=== PATIENT | male | born 1985 | race Caucasian/White ===

== ENCOUNTER 2016-08-30 02:19 | Emergency (ER) | payer BC ==
[~2016-08-30] VITALS: Ht 182.9 cm; Wt 101.3 kg
[~2016-08-30 02:19] MED LIST: AMBIEN10 MG PO; AUGMENTIN875 MG PO; BROMFED DM COU118 ML PO; CLINDAMYCIN HC300 MG PO; DOXYCYCLINE HY100 MG PO; FIORICET 50-301 EACH PO; INDOCIN25 MG PO; MUCINEX D ER T1 EACH PO; NAPROSYN500 MG PO; NASONEX17 GM BOTH NARES; NO HOME MEDS; NO MEDS; NOHOMEMEDS; NORCO 7.5/321 TABLET PO; PERCOCET 5-3251 EACH PO; SUMATRIPTAN SUC50 MG PO; VALIUM2 MG PO; VIBRAMYCIN100 MG PO; VICODIN 5-5001 EACH PO; oxyCODONE PO
[2016-08-30 02:56] LABS: HEMATOCRIT 44.2 % (38.0-50.0); MCH 33.1 PG (29.0-34.0); MCHC 35.3 G/DL (30.0-36.0); MCV 93.6 FL (86-99); MEAN PLAT.VOLUME 8.5 uM^3 (9.0-12.4); PLATELET COUNT 238 K/uL (156-360); RBC DIS.WIDTH-CV 11.8 % (11.8-14.6); RBC DIS.WIDTH-SD 40.8 % (39-53); RED BLOOD COUNT 4.72 M/uL (4.00-5.50); WHITE BLOOD COUNT 8.3 K/uL (4.1-10.2)
[2016-08-30 03:08] LABS: CHLORIDE 104 mEq/L (99-109); POTASSIUM 3.5 mEq/L (3.7-5.4); SODIUM 137 mEq/L (136-147)
[2016-08-30 03:10] LABS: GLUCOSE 126 mg/dL (70-99)
[2016-08-30 03:11] LABS: ANION GAP 13 MEQ/L (2-14)
[2016-08-30 03:14] LABS: GFR ESTIMATE (CALCULATED) > 59 mL/min/
[2016-08-30 03:15] LABS: UREA NITROGEN (BUN) 10 mg/dL (9-23)
[2016-08-30 12:24] VITALS: BP 110/57
== END 2016-08-30 12:24 | disposition home or self-care (01) ==
LOC: EME 02:19
PROVIDERS: Emergency Medicine
DX: F10.129 Alcohol abuse with intoxication, unspecified (principal); W19.XXXA Unspecified fall, initial encounter; Z86.14 Personal history of Methicillin resistant Staphylococcus aureus infection; F17.200 Nicotine dependence, unspecified, uncomplicated
CPT/HCPCS: 70450; 80048; 85027; 99281; 99285; J1630; J2060

== ENCOUNTER 2017-01-14 17:47 | Emergency (ER) | payer BC ==
[~2017-01-14] VITALS: Ht 180.3 cm; Wt 101.0 kg
[2017-01-14 18:13] VITALS: BP 127/90
[2017-01-14] MEDS ORDERED: ATARAX,VISTARIL50 MG PO (20:09)
[2017-01-14] MEDS ORDERED: MEDROL DOSEPAK4 MG PO (20:09)
== END 2017-01-14 21:15 | disposition home or self-care (01) ==
LOC: EME 17:47
DX: L25.9 Unspecified contact dermatitis, unspecified cause (principal); Z87.891 Personal history of nicotine dependence
CPT/HCPCS: 99281; 99283; J7512; Q0177

== ENCOUNTER 2017-11-21 17:50 | Emergency (ER) | payer OTHER ==
[~2017-11-21] VITALS: Ht 182.9 cm; Wt 98.1 kg
[~2017-11-21 17:50] MED LIST changes: +ATARAX,VISTARIL50 MG PO; +MEDROL DOSEPAK4 MG PO
[2017-11-21 19:36] LABS: HEMATOCRIT 41.5 % (38.0-50.0); HEMOGLOBIN 15.3 G/DL (12.5-16.6); MCHC 36.9 G/DL (30.0-36.0); MCV 89.6 FL (86-99); PLATELET COUNT 232 K/uL (156-360); RBC DIS.WIDTH-CV 12.4 % (11.8-14.6); RBC DIS.WIDTH-SD 40.6 % (39-53); RED BLOOD COUNT 4.63 M/uL (4.00-5.50); WHITE BLOOD COUNT 5.9 K/uL (4.1-10.2)
[2017-11-21 19:44] LABS: ALBUMIN 4.4 g/dL (3.2-4.8); CHLORIDE 104 mEq/L (99-109); POTASSIUM 3.9 mEq/L (3.7-5.4); SODIUM 139 mEq/L (136-147)
[2017-11-21 19:46] LABS: GLUCOSE 89 mg/dL (70-99); TOTAL PROTEIN 7.2 g/dL (6.4-8.3)
[2017-11-21 19:48] LABS: TOTAL BILIRUBIN 0.5 mg/dL (0.0-1.0)
[2017-11-21 19:49] LABS: APPEARANCE CLEAR ((CLEAR)); BILIRUBIN NEGATIVE; BLOOD SMALL; COLOR YELLOW ((YELLOW)); GLUCOSE (STRIP) NEGATIVE; KETONES NEGATIVE; LEUKOCYTES NEGATIVE; NITRITE NEGATIVE; PROTEIN (STRIP) NEGATIVE; SPECIFIC GRAVITY 1.016 (1.000-1.030); UROBILINOGEN 0.2 MG/DL (0.2-1.0)
[2017-11-21 19:50] LABS: ALKALINE PHOSPHATASE 55 IU/L (3-129); GFR ESTIMATE (CALCULATED) > 59 mL/min/ (58.99-99999)
[2017-11-21 19:51] LABS: UREA NITROGEN (BUN) 10 mg/dL (9-23)
[2017-11-21 19:52] LABS: AST (GOT) 19 IU/L (2-34)
[2017-11-21 19:53] LABS: ALT (GPT) 22 IU/L (3-49)
[2017-11-21] MEDS ORDERED: PERCOCET 5/31 TABLET PO (20:11)
[2017-11-21] MEDS ORDERED: MOTRIN800 MG PO (20:11)
[2017-11-21] MEDS ORDERED: LIDODERM 5% P1 PATCH TD (20:11)
[2017-11-21] MEDS ORDERED: FLEXERIL10 MG PO (20:11)
[2017-11-21] MEDS ORDERED: ZOFRAN ODT4 MG PO (20:13)
[2017-11-21 20:22] LABS: BACTERIA NONE SEEN /HPF; EPITHELIAL CELLS NONE SEEN /HPF; MUCUS NONE SEEN /LPF; RED BLOOD CELLS 0-5 /HPF (0-5); UCUL ADDED? NO; WHITE BLOOD CELLS 0-5 /HPF (0-5)
[2017-11-21 20:40] VITALS: BP 145/91
== END 2017-11-21 20:42 | disposition home or self-care (01) ==
LOC: EME 17:50
PROVIDERS: Nurse Practitioner Family
DX: K57.30 Diverticulosis of large intestine without perforation or abscess without bleeding (principal); R31.9 Hematuria, unspecified; Z87.891 Personal history of nicotine dependence; Z86.14 Personal history of Methicillin resistant Staphylococcus aureus infection; Z88.2 Allergy status to sulfonamides
CPT/HCPCS: 74176; 80053; 81003; 85027; 99281; 99284; J1885; J2060; J3010; J7030